=== PATIENT | female | born 1980 | race Caucasian/White ===

== ENCOUNTER 2018-04-12 05:21 | Day surgery (SDC) | payer BC ==
[2018-04-02 12:47] LABS: BASOPHILS # (AUTO) 0.1 X10'3 (0-0.2); BASOPHILS % (AUTO) 0.5 % (0-1); EOSINOPHILS # (AUTO) 0.1 X10'3 (0-0.9); EOSINOPHILS % (AUTO) 0.8 % (0-6); LYMPHOCYTES # (AUTO) 1.3 X10'3 (1.1-4.8); LYMPHOCYTES % (AUTO) 11.5 % (21-51); MEAN CORPUSCULAR HEMOGLOBIN 28.6 PG (27.0-31.0); MEAN CORPUSCULAR HGB CONC 33.7 % (33.0-36.5); MEAN CORPUSCULAR VOLUME 84.7 FL (78-98); MEAN PLATELET VOLUME 9.3 FL (7.4-10.4); MONOCYTES # (AUTO) 0.7 X10'3 (0-0.9); MONOCYTES % (AUTO) 6.5 % (2-12); NEUTROPHILS # (AUTO) 9.2 X10'3 (1.8-7.7); NEUTROPHILS % (AUTO) 80.7 % (42-75); PRE OP HEMATOCRIT 39.1 % (35.0-45.0); PRE OP HEMOGLOBIN 13.2 g/dL (12.0-16.0); PRE OP PLATELET COUNT 373 X10'3 (140-440); RED BLOOD COUNT 4.62 X10'6 (4.20-5.60); RED CELL DISTRIBUTION WIDTH 13.1 % (11.5-14.5)
[2018-04-02 12:58] LABS: ALBUMIN 3.7 G/DL (3.4-5.0); ALBUMIN/GLOBULIN RATIO 1.1 (1.1-1.5); ALKALINE PHOSPHATASE 44 IU/L (46-116); BLOOD UREA NITROGEN 14 MG/DL (7-18); BUN/CREATININE RATIO 17.7 (6.6-38.0); CALCIUM 9.2 MG/DL (8.5-10.1); CHLORIDE 104 MMOL/L (99-107); CREATININE 0.79 MG/DL (0.40-0.90); PRE OP ALT 30 U/L (30-65); PRE OP ANION GAP 7 (8-16); PRE OP AST 22 U/L (10-37); PRE OP BILIRUB, TOTAL 0.3 MG/DL (0.0-1.0); PRE OP GLUCOSE 91 MG/DL (70-104); PRE OP POTASSIUM 3.4 MMOL/L (3.4-5.1); PRE OP SODIUM 142 MMOL/L (135-145); TOTAL CARBON DIOXIDE 31.1 MMOL/L (24-32); TOTAL PROTEIN 7.2 G/DL (6.4-8.2); eGFR 81 ML/MIN
[2018-04-02 13:12] LABS: HCG SERUM QL NEGATIVE
[2018-04-02 14:02] LABS: CLARITY,URINE CLEAR (Clear); COLOR,URINE YELLOW (Yellow); GLUCOSE, URINE NEGATIVE (Neg); KETONES,URINE NEGATIVE (Neg); LEUKOCYTE ESTERASE ,URINE NEGATIVE (Neg); NITRITES, URINE NEGATIVE (Neg); OCCULT BLOOD,URINE NEGATIVE (Neg); PROTEIN,URINE NEGATIVE (Neg); UROBILINOGEN,URINE 0.2 E.U/dL (0.2-1.0)
[2018-04-02 14:20] LABS: UA COLLECTION TYPE CLN CATCH MIDSTREAM
[~2018-04-12] VITALS: Ht 165.1 cm; Wt 65.9 kg
[2018-04-12] VITALS (18 sets, daily range): BP systolic 93–136; BP diastolic 40–75
[~2018-04-12 05:21] MED LIST: CHOL400T PO; MULT-1085 PO
[2018-04-12] MEDS ORDERED: cefoxitin sod inj 2,000 MG in dextrose 5%-water 100 ML IV ONE (05:30)
[2018-04-12] MEDS ORDERED: famotidine 20mg tablet PO ONE (05:30)
[2018-04-12] MEDS ORDERED: LIDOcaine 1% (10mg/ml) 2ml vial ONE (05:46)
[2018-04-12] MEDS: ringers solution, lacted 1,000 ML IV SCH ×2 (06:00→13:56)
[2018-04-12] MEDS ORDERED: epiNEPHrine 1 mg/ml inj ONE (06:46)
[2018-04-12] MEDS ORDERED: BUPIVAcaine/PF 2.5mg/ml (0.25%) 10ml vial ONE (06:46)
[2018-04-12] MEDS ORDERED: vasoPRESSIN 20 units/ml inj. ONE (06:47)
[2018-04-12] MEDS ORDERED: fentaNYL /PF 50mcg/ml 5ml ampule ONE (07:26)
[2018-04-12] MEDS ORDERED: midazolam 2 mg/2 ml injection ONE (07:26)
[2018-04-12] MEDS ORDERED: neomy sulf/polymyxin B sulf. GU irrigation 1ml amp IR ONE (07:34)
[2018-04-12] MEDS ORDERED: rocuronium 10mg/ml inj IV ONE (07:43)
[2018-04-12] MEDS ORDERED: propofol inj 20 ML IV ONE (07:43)
[2018-04-12] MEDS ORDERED: ringers solution, lacted 1,000 ML IV SCH (08:21)
[2018-04-12] MEDS ORDERED: ondansetron/PF 4mg/2ml inj IV PRN ×2 (08:25→09:20)
[2018-04-12] MEDS ORDERED: proCHLORperazine 10 MG/2 ml inj IV PRN (08:25)
[2018-04-12] MEDS ORDERED: morphine 4 MG/ML inj SYRINge IV PRN ×2 (08:25)
[2018-04-12] MEDS ORDERED: meperidine/PF 25mg/ml syringe IV PRN ×2 (08:25)
[2018-04-12] MEDS ORDERED: dexamethasone sod phosphate 4mg/ml inj. ONE (09:10)
[2018-04-12] MEDS ORDERED: ondansetron/PF 4mg/2ml inj ONE (09:10)
[2018-04-12] MEDS ORDERED: glycopyrrolate 0.2mg/ml inj ONE (09:11)
[2018-04-12] MEDS ORDERED: neostigmine methylsulfate 1 MG/ML 10ml vial ONE (09:11)
[2018-04-12] MEDS ORDERED: ketorolac trometh. 30mg/ml inj. IV PRN (09:20)
[2018-04-12] MEDS ORDERED: LORazepam 2 mg/ml vial IV PRN (09:20)
[2018-04-12] MEDS ORDERED: diphenhydrAMINE 50 mg/ml inj IV PRN (09:20)
[2018-04-12] MEDS ORDERED: metoclopramide 5 mg/ml inj IV PRN (09:20)
[2018-04-12] MEDS ORDERED: normal saline 500ml IV soln 500 ML IV PRN (09:20)
[2018-04-12] MEDS ORDERED: HYDROcodone/acetaminophen 10/325mg tab PO PRN ×2 (09:20)
[2018-04-12] MEDS ORDERED: temazepam 15mg capsule PO PRN (09:20)
[2018-04-12] MEDS: meperidine/PF 25mg/ml syringe IV PRN ×2 (09:50→10:02)
[2018-04-12] MEDS: simethicone 80mg chew tab PO SCH ×2 (14:27→16:35)
[2018-04-12 17:14] LABS: BASOPHILS % (AUTO) 0 % (0-1); EOSINOPHILS # (AUTO) 0.3 X10'3 (0-0.9); HEMATOCRIT 40.4 % (35.0-45.0); HEMOGLOBIN 13.2 g/dl (12.0-16.0); LYMPHOCYTES # (AUTO) 0.5 X10'3 (1.1-4.8); LYMPHOCYTES % (AUTO) 2.7 % (21-51); MEAN CORPUSCULAR HEMOGLOBIN 27.8 PG (27.0-31.0); MEAN CORPUSCULAR HGB CONC 32.6 % (33.0-36.5); MEAN CORPUSCULAR VOLUME 85.4 FL (78-98); MEAN PLATELET VOLUME 9.2 FL (7.4-10.4); MONOCYTES # (AUTO) 0.1 X10'3 (0-0.9); MONOCYTES % (AUTO) 0.5 % (2-12); NEUTROPHILS % (AUTO) 94.8 % (42-75); PLATELET COUNT 346 X10'3 (140-440); RED BLOOD COUNT 4.73 X10'6 (4.20-5.60); RED CELL DISTRIBUTION WIDTH 14.2 % (11.5-14.5); WHITE BLOOD COUNT 16.9 X10'3 (4.5-11.0)
[2018-04-12] MEDS ORDERED: docusate sod 100mg capsule PO SCH (20:00)
[2018-04-13] MEDS ORDERED: enoxaparin 40mg/0.4ml syringe SQ SCH (08:00)
== END 2018-04-12 17:35 | disposition home or self-care (01) ==
LOC: PAS 05:21 → SUR 3N 11:40 → PAS 17:35
PROVIDERS: ATTEND Obstetrics & Gynecology Obstetrics
DX: N80.0 Endometriosis of uterus (principal); N73.6 Female pelvic peritoneal adhesions (postinfective); N92.0 Excessive and frequent menstruation with regular cycle; N94.6 Dysmenorrhea, unspecified; Z90.89 Acquired absence of other organs; Z79.1 Long term (current) use of non-steroidal anti-inflammatories (NSAID); Z79.891 Long term (current) use of opiate analgesic; Z91.040 Latex allergy status; Z87.09 Personal history of other diseases of the respiratory system; Z72.89 Other problems related to lifestyle; Z86.79 Personal history of other diseases of the circulatory system; Z98.890 Other specified postprocedural states; Z79.899 Other long term (current) drug therapy
CPT/HCPCS: 36415; 53899; 58550; 80053; 81003; 84703; 85025; 86885; 86900; 86901; 87070; 93005; A4315; A6255; J0171; J0694; J1100; J1885; J2175; J2250; J2405; J2704; J2710; J3010; J3490; J7030; J7060; J7120; A7000; J1650